=== PATIENT | female | born 1980 | race Caucasian/White ===

== ENCOUNTER → 2016-07-27 | Outpatient (CLI) | payer BC ==
[~2016-07-27] MED LIST: AMOXIL500 M1 PO; ATIVAN1 MG PO; BIAXIN500 MG PO; CLARITIN10 MG PO; DAYPRO600 M1 PO; DEPO PROVER150 MG/M1 IM; LIDEX0.05% T; MOTRIN800 MG PO; Meclizine25 MG PO; NKHM; PENICILLIN VK500 MG PO; PEPCID20 MG PO; ROBAXIN750 MG PO; TRAMADOL HCL50 MG PO; WYMOX500 MG PO; ZITHROMAX250 MG PO; ZYRTEC10 MG PO
[2016-07-27 13:05] LABS: BILIRUBIN NEGATIVE (NEGATIVE); BLOOD NEGATIVE (NEGATIVE); CLARITY CLEAR (CLEAR); COLOR YELLOW (YELLOW); GLUCOSE NEGATIVE (NEGATIVE); KETONE TRACE (NEGATIVE); LEUKO ESTERASE NEGATIVE (NEGATIVE); NITRITE NEGATIVE (NEGATIVE); PROTEIN NEGATIVE (NEGATIVE); SPECIFIC GRAVITY 1.025 (1.005-1.030); UROBILINOGEN 0.2 E.U./dl (0.2-1.0)
[2016-07-27 13:12] LABS: RBC 0-2 rbc/hpf (0-2)
[2016-07-27 13:13] LABS: BASO # 0.1 10*3/uL (0.0-0.1); BASO % 1.4 % (0.0-1.0); EOS % 0.7 % (1.0-4.0); HEMATOCRIT 38.6 % (37.0-47.0); LYMPH % 22.7 % (27.0-41.0); MEAN CORPUSCULAR HGB 30.3 pg (27.0-31.0); MEAN CORPUSCULAR HGB CONC 33.7 g/dl (33.0-37.0); MEAN PLATELET VOLUME 9.6 fl (9.6-12.3); MONO # 0.2 10*3/uL (0.1-1.0); MONO % 5.2 % (3.0-9.0); NEUT # 3.1 10*3/uL (2.3-7.9); NEUT % 69.8 % (47.0-73.0); PLATELET COUNT AUTOMATED 314 10*3/uL (130-400); RED BLOOD COUNT 4.29 10*6/uL (4.10-5.10); RED CELL DISTRI WIDTH 12.9 % (0-14.5); WHITE BLOOD COUNT 4.4 10*3/uL (4.8-10.8)
[2016-07-27 13:37] LABS: ALBUMIN 3.9 gm/dl (3.1-4.5); ALKALINE PHOSPHATASE 70 U/L (45-117); BILIRUBIN, TOTAL 0.6 mg/dl (0.2-1.0); BUN 18 mg/dl (7-24); CARBON DIOXIDE 29 mmol/L (21-32); CHLORIDE 105 mmol/L (98-107); EST GLOM FILT AFRICAN AMERICAN > 60 ml/min; GLUCOSE 102 mg/dL (65-99); POTASSIUM 3.8 mmol/L (3.5-5.1); SGOT/AST 17 IU/L (3-35); SGPT/ALT 25 U/L (12-78); SODIUM 141 mmol/L (136-145); TOTAL PROTEIN 7.5 gm/dL (6.4-8.2)
== END | disposition home or self-care (01) ==
LOC: LAB 12:02
PROVIDERS: Obstetrics & Gynecology
DX: Z01.818 Encounter for other preprocedural examination (principal); F17.200 Nicotine dependence, unspecified, uncomplicated

== ENCOUNTER 2016-11-28 13:28 | Emergency (ER) | payer BC ==
[~2016-11-28] VITALS: Ht 170.1 cm; Wt 68.0 kg
[2016-11-28 13:39] VITALS: BP 121/79
[2016-11-28 14:09] LABS: BASO # 0.1 10*3/uL (0.0-0.1); BASO % 0.8 % (0.0-1.0); EOS # 0.1 10*3/uL (0.0-0.4); EOS % 1.5 % (1.0-4.0); HEMATOCRIT 36.3 % (37.0-47.0); LYMPH # 1.2 10*3/uL (1.3-4.4); LYMPH % 18.6 % (27.0-41.0); MEAN CELL VOLUME 87.5 fl (81.0-99.0); MEAN CORPUSCULAR HGB 28.9 pg (27.0-31.0); MEAN CORPUSCULAR HGB CONC 33.1 g/dl (33.0-37.0); MEAN PLATELET VOLUME 9.4 fl (9.6-12.3); MONO # 0.3 10*3/uL (0.1-1.0); MONO % 5.2 % (3.0-9.0); NEUT # 4.6 10*3/uL (2.3-7.9); NEUT % 73.7 % (47.0-73.0); PLATELET COUNT AUTOMATED 347 10*3/uL (130-400); RED BLOOD COUNT 4.15 10*6/uL (4.10-5.10); RED CELL DISTRI WIDTH 14.2 % (0-14.5); WHITE BLOOD COUNT 6.2 10*3/uL (4.8-10.8)
[2016-11-28 14:11] LABS: BILIRUBIN NEGATIVE (NEGATIVE); BLOOD 2+ (NEGATIVE); CLARITY CLEAR (CLEAR); COLOR YELLOW (YELLOW); GLUCOSE NEGATIVE (NEGATIVE); KETONE NEGATIVE (NEGATIVE); LEUKO ESTERASE 1+ (NEGATIVE); NITRITE NEGATIVE (NEGATIVE); PROTEIN NEGATIVE (NEGATIVE); UROBILINOGEN 0.2 E.U./dl (0.2-1.0)
[2016-11-28 14:15] LABS: URINE REFLEX COMMENT YES (NO)
[2016-11-28 14:17] LABS: BACTERIA TRACE; EPITHELIAL CELLS 21-30; WBC 16-20 wbc/hpf (0-5)
[2016-11-28 14:28] LABS: ALBUMIN 3.8 gm/dl (3.1-4.5); ALKALINE PHOSPHATASE 99 U/L (45-117); BILIRUBIN, TOTAL 0.3 mg/dl (0.2-1.0); BUN 16 mg/dl (7-24); CARBON DIOXIDE 28 mmol/L (21-32); CHLORIDE 106 mmol/L (98-107); EST GLOM FILT AFRICAN AMERICAN > 60 ml/min; GLUCOSE 98 mg/dL (65-99); POTASSIUM 4.1 mmol/L (3.5-5.1); SGOT/AST 16 IU/L (3-35); SGPT/ALT 18 U/L (12-78); SODIUM 139 mmol/L (136-145); TOTAL PROTEIN 7.6 gm/dL (6.4-8.2)
[2016-11-28] MEDS ORDERED: NAPROSYN500 MG PO (17:35)
[2016-11-28] MEDS ORDERED: ZOFRAN4 MG PO (17:35)
[2016-11-28] MEDS ORDERED: MACROBID100 M1 PO (17:35)
[2016-11-28] MEDS ORDERED: PYRIDIUM200 M1 PO (17:35)
== END 2016-11-28 17:52 | disposition home or self-care (01) ==
LOC: ED 13:28
PROVIDERS: Nurse Practitioner Family
DX: N83.8 Other noninflammatory disorders of ovary, fallopian tube and broad ligament (principal); N39.0 Urinary tract infection, site not specified; F17.200 Nicotine dependence, unspecified, uncomplicated; Z88.1 Allergy status to other antibiotic agents; Z88.2 Allergy status to sulfonamides

== ENCOUNTER → 2017-10-27 | Outpatient (CLI) | payer BC ==
[~2017-10-27] MED LIST changes: +MACROBID100 M1 PO; +NAPROSYN500 MG PO; +PYRIDIUM200 M1 PO; +ZOFRAN4 MG PO
== END | disposition home or self-care (01) ==
LOC: RAD 07:48
DX: R10.13 Epigastric pain (principal)

== ENCOUNTER → 2017-11-09 | Outpatient (CLI) | payer BC ==
--- NOTE | ~2017-11-09 | PF ---
[place], [place] PULMONARY FUNCTION TEST NAME: ANA WHITFIELD UNIT #: [id number] ROOM: DOCTOR: JEFF BURGOS,SUSAN BIRTHDATE: [birth year] DOS: 11/09/2017 REQUESTED BY: MARCELL Mcgee INDICATIONS: A 67 inches tall, 155 pounds, 37-year-old female complaining of dyspepsia. No shortness of breath, no cough, no wheezing, but had some chest pain. A 87-ctsj-tpar history of smoking cigarettes and still does. Her father of lung cancer. The patient gave a good effort and reproducible. Flow volume loop normal. Spirometry, FEV1 post-bronchodilator therapy 3.7 liters or 98% predicted. FVC 4.4 liters, 107% predicted, which is 83% of the FEV1. No significant response to bronchodilator therapy. LUNG VOLUME: Slow vital capacity 168, inspiratory capacity 105, ERV 117. Total gas volume 107, residual volume 100. Total lung capacity 111% predicted, respectively. RV/TLC 20%, diffusion capacity 104% corrected. ____ volume 98%, alert volume 105% predicted, respectively. Airway resistance is 1%. IMPRESSION: This is essentially a normal pulmonary function test. No significant response to bronchodilator therapy. If asthma is suspected, suggest doing a methacholine challenge test ____ spirometry. Airway resistance suggests a little decrease than what is expected. SUSAN AGUILAR MD CM:PFREPORT:PULMONARY FUNCTION TEST [id number] SUSAN AGUILAR MD
== END | disposition home or self-care (01) ==
LOC: CP 08:20
DX: R10.13 Epigastric pain (principal)

== ENCOUNTER → 2018-01-04 | Day surgery (SDC) | payer BC ==
[~2018-01-04] VITALS: Ht 170.1 cm; Wt 64.9 kg
[~2018-01-04] MED LIST changes: +GOOD NEIGHBOR150 MG PO; +HYDROXYZINE HCL25 M1 PO; +OMEPRAZOLE40 MG PO
[2018-01-04 09:45] VITALS: BP 121/72
[2018-01-04 11:54] VITALS: BP 93/52
[2018-01-04 12:10] VITALS: BP 103/64
[2018-01-04 12:25] VITALS: BP 106/57
== END | disposition home or self-care (01) ==
LOC: SDC 01-03 14:00
DX: K29.60 Other gastritis without bleeding (principal); K21.9 Gastro-esophageal reflux disease without esophagitis; F41.8 Other specified anxiety disorders; Z90.710 Acquired absence of both cervix and uterus; Z87.891 Personal history of nicotine dependence; Z79.899 Other long term (current) drug therapy; Z88.1 Allergy status to other antibiotic agents; Z88.2 Allergy status to sulfonamides; Z80.0 Family history of malignant neoplasm of digestive organs; Z80.1 Family history of malignant neoplasm of trachea, bronchus and lung

== ENCOUNTER → 2018-01-26 | Outpatient (CLI) | payer BC | END | disposition home or self-care (01) | LOC: US 06:10 | DX: R10.13 Epigastric pain (principal) ==

== ENCOUNTER 2018-07-18 18:30 | Emergency (ER) | payer BC ==
[~2018-07-18] VITALS: Wt 65.8 kg
--- NOTE | ~2018-07-18 | EKG ---
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
--- NOTE | ~2018-07-18 | EKG ---
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
[2018-07-18 18:49] LABS: BASO # 0.1 10*3/uL (0.0-0.1); BASO % 0.9 % (0.0-1.0); EOS # 0.1 10*3/uL (0.0-0.4); EOS % 0.9 % (1.0-4.0); HEMATOCRIT 36.7 % (37.0-47.0); HEMOGLOBIN 12.8 g/dl (12.0-16.0); LYMPH # 1.9 10*3/uL (1.3-4.4); LYMPH % 29.8 % (27.0-41.0); MEAN CELL VOLUME 90.6 fl (81.0-99.0); MEAN CORPUSCULAR HGB 31.6 pg (27.0-31.0); MEAN CORPUSCULAR HGB CONC 34.9 g/dl (33.0-37.0); MEAN PLATELET VOLUME 9.2 fl (9.6-12.3); MONO # 0.5 10*3/uL (0.1-1.0); NEUT # 3.9 10*3/uL (2.3-7.9); NEUT % 60.2 % (47.0-73.0); PLATELET COUNT AUTOMATED 253 10*3/uL (130-400); RED BLOOD COUNT 4.05 10*6/uL (4.10-5.10); RED CELL DISTRI WIDTH 12.4 % (0-14.5); WHITE BLOOD COUNT 6.4 10*3/uL (4.8-10.8)
[2018-07-18 19:01] LABS: ACT PARTIAL THROMBO TIME 25.8 SECONDS (20.8-31.5); INTERNATIONAL NORM RATIO 0.9 (2.0-3.5)
[2018-07-18 19:06] LABS: ALBUMIN 3.5 gm/dl (3.1-4.5); ALKALINE PHOSPHATASE 73 U/L (45-117); BUN 22 mg/dl (7-24); CHLORIDE 105 mmol/L (98-107); CREATININE 0.97 mg/dL (0.55-1.02); POTASSIUM 3.4 mmol/L (3.5-5.1); SGOT/AST 17 IU/L (3-35); SGPT/ALT 47 U/L (12-78); SODIUM 140 mmol/L (136-145); TOTAL PROTEIN 7.2 gm/dL (6.4-8.2)
[2018-07-18 19:07] LABS: TROPONIN I < 0.015 ng/ml (<0.045)
[2018-07-18] MEDS ORDERED: CITALOPRAM HYDR10 MG PO (22:17)
[2018-07-18] MEDS ORDERED: ZYRTEC10 MG PO (22:17)
[2018-07-19 01:15] VITALS: BP 112/64
== END 2018-07-19 01:20 | disposition home or self-care (01) ==
LOC: ED 18:30
PROVIDERS: Emergency Medicine
DX: R07.89 Other chest pain (principal); R07.81 Pleurodynia; L29.9 Pruritus, unspecified; R07.0 Pain in throat; Z87.891 Personal history of nicotine dependence; Z88.2 Allergy status to sulfonamides; Z87.440 Personal history of urinary (tract) infections; Z90.710 Acquired absence of both cervix and uterus

== ENCOUNTER 2019-01-30 05:48 | Emergency (ER) | payer BC ==
[~2019-01-30] VITALS: Ht 170.1 cm; Wt 72.6 kg
[~2019-01-30 05:48] MED LIST changes: +CITALOPRAM HYDR10 MG PO
[2019-01-30 05:54] VITALS: BP 123/79
[2019-01-30 06:31] LABS: BILIRUBIN NEGATIVE (NEGATIVE); BLOOD NEGATIVE (NEGATIVE); CLARITY SL CLOUDY (CLEAR); COLOR YELLOW (YELLOW); GLUCOSE NEGATIVE (NEGATIVE); KETONE NEGATIVE (NEGATIVE); LEUKO ESTERASE NEGATIVE (NEGATIVE); NITRITE NEGATIVE (NEGATIVE); UROBILINOGEN 0.2 E.U./dl (0.2-1.0)
[2019-01-30 06:48] LABS: BACTERIA 4+; EPITHELIAL CELLS 15-20
== END 2019-01-30 07:04 | disposition home or self-care (01) ==
LOC: ED 05:48
PROVIDERS: Student in an Organized Health Care Education/Training Program
DX: N39.0 Urinary tract infection, site not specified (principal); Z88.2 Allergy status to sulfonamides; Z79.899 Other long term (current) drug therapy; Z90.710 Acquired absence of both cervix and uterus

== ENCOUNTER → 2019-06-10 | Outpatient (CLI) | payer BC ==
[2019-06-10 09:10] LABS: ALBUMIN 3.7 gm/dl (3.1-4.5); ALKALINE PHOSPHATASE 103 U/L (45-117); BUN 14 mg/dl (7-24); CHLORIDE 110 mmol/L (98-107); CREATININE 0.77 mg/dL (0.55-1.02); FREE T4 0.91 ng/dl (0.76-1.46); POTASSIUM 3.9 mmol/L (3.5-5.1); SGOT/AST 18 IU/L (3-35); SGPT/ALT 34 U/L (12-78); SODIUM 140 mmol/L (136-145); T3 UPTAKE 37 % (31-39); TOTAL PROTEIN 7.5 gm/dL (6.4-8.2)
[2019-06-10 09:18] LABS: THYROID STIM HORMONE (HS) 0.528 uIU/ml (0.358-4.75)
[2019-06-10 10:29] LABS: VITAMIN D, 25-HYDROXY 15.2 ng/mL (30-100)
[2019-06-11 08:08] LABS: FOLLICLE STIMULATING HORMONE 5.2 mIU/mL (.); LUTEINIZING HORMONE 004283 5.2 mIU/mL (.); PROLACTIN 004465 5.1 ng/mL (4.8-23.3)
[2019-06-11 09:10] LABS: THYROID PEROXIDASE (TPO) AB 15 IU/mL (0-34); TOTAL T3 (TT3) 002188 98 ng/dL (71-180)
[2019-06-12 14:08] LABS: INSULIN-LIKE GROWTH FACTOR-1 197 ng/mL (69-227)
[2019-06-12 15:10] LABS: HUMAN GROWTH HORMONE 0.3 ng/mL (0.0-10.0)
[2019-06-12 16:06] LABS: THYROGLOBULIN ANTIBODY <1.0 IU/mL (0.0-0.9)
[2019-06-15 00:09] LABS: METANEPHRINE, PLASMA 11 pg/mL (0-62)
[2019-06-15 11:56] LABS: NORMETANEPHRINE, PLASMA 31 pg/mL (0-145)
== END | disposition home or self-care (01) ==
LOC: LAB 07:52
PROVIDERS: Internal Medicine Endocrinology, Diabetes & Metabolism
DX: I10 Essential (primary) hypertension (principal); M54.5 Low back pain; E03.9 Hypothyroidism, unspecified; G62.9 Polyneuropathy, unspecified; R63.5 Abnormal weight gain; R53.82 Chronic fatigue, unspecified

== ENCOUNTER 2019-09-21 09:36 | Emergency (ER) | payer BC ==
[~2019-09-21] VITALS: Ht 170.1 cm; Wt 86.2 kg
[2019-09-21 09:42] VITALS: BP 122/68
[2019-09-21 10:14] LABS: BASO % 0.5 % (0.0-1.0); EOS # 0.2 10*3/uL (0.0-0.4); EOS % 2.8 % (1.0-4.0); HEMATOCRIT 35.9 % (37.0-47.0); HEMOGLOBIN 11.7 g/dl (12.0-16.0); LYMPH # 1.1 10*3/uL (1.3-4.4); LYMPH % 16.4 % (27.0-41.0); MEAN CELL VOLUME 94.5 fl (81.0-99.0); MEAN CORPUSCULAR HGB 30.8 pg (27.0-31.0); MEAN CORPUSCULAR HGB CONC 32.6 g/dl (33.0-37.0); MEAN PLATELET VOLUME 8.9 fl (9.6-12.3); MONO # 0.4 10*3/uL (0.1-1.0); MONO % 6.1 % (3.0-9.0); NEUT # 4.8 10*3/uL (2.3-7.9); PLATELET COUNT AUTOMATED 284 10*3/uL (130-400); RED CELL DISTRI WIDTH 13.2 % (0-14.5); WHITE BLOOD COUNT 6.4 10*3/uL (4.8-10.8)
[2019-09-21 10:30] LABS: ALBUMIN 3.1 gm/dl (3.1-4.5); ALKALINE PHOSPHATASE 90 U/L (45-117); BUN 14 mg/dl (7-24); CHLORIDE 108 mmol/L (98-107); CREATININE 0.78 mg/dL (0.55-1.02); POTASSIUM 3.7 mmol/L (3.5-5.1); SGOT/AST 21 IU/L (3-35); SODIUM 138 mmol/L (136-145); TOTAL PROTEIN 6.5 gm/dL (6.4-8.2)
[2019-09-21 10:31] LABS: SGPT/ALT 20 U/L (12-78)
[2019-09-21] MEDS ORDERED: AMOXICILLIN500 M3 PO (11:03)
== END 2019-09-21 11:22 | disposition home or self-care (01) ==
LOC: ED 09:36
PROVIDERS: Nurse Practitioner Family
DX: J02.9 Acute pharyngitis, unspecified (principal); R22.1 Localized swelling, mass and lump, neck; Z88.2 Allergy status to sulfonamides; Z79.899 Other long term (current) drug therapy

== ENCOUNTER → 2019-12-28 | Outpatient (CLI) | payer BC ==
[~2019-12-28] MED LIST changes: +AMOXICILLIN500 M3 PO
== END | disposition home or self-care (01) ==
LOC: CARD 11:46
DX: R06.02 Shortness of breath (principal)

== ENCOUNTER 2022-12-29 20:30 | Emergency (ER) | payer BC ==
[~2022-12-29] VITALS: Ht 167.6 cm; Wt 77.1 kg
[2022-12-29 20:39] VITALS: BP 146/87
[2022-12-29] MEDS ORDERED: NAPROSYN500 MG PO (21:12)
== END 2022-12-29 21:11 | disposition home or self-care (01) ==
LOC: ED 20:30
DX: S93.402A Sprain of unspecified ligament of left ankle, initial encounter (principal); F41.9 Anxiety disorder, unspecified; K21.9 Gastro-esophageal reflux disease without esophagitis; F32.A Depression, unspecified; Z88.2 Allergy status to sulfonamides; Z88.8 Allergy status to other drugs, medicaments and biological substances; Z90.710 Acquired absence of both cervix and uterus; Z98.890 Other specified postprocedural states; X50.1XXA Overexertion from prolonged static or awkward postures, initial encounter; Y93.68 Activity, volleyball (beach) (court); Y92.39 Other specified sports and athletic area as the place of occurrence of the external cause; Y99.8 Other external cause status

== ENCOUNTER 2024-09-24 16:01 | Emergency (ER) | payer BC ==
[~2024-09-24] VITALS: Ht 170.1 cm; Wt 74.8 kg
[2024-09-24 16:09] VITALS: BP 145/91
[2024-09-24] MEDS ORDERED: AMOX-CLAV 875-1 EACH PO (16:27)
== END 2024-09-24 16:39 | disposition home or self-care (01) ==
LOC: ED 16:01
DX: K04.7 Periapical abscess without sinus (principal); Z88.2 Allergy status to sulfonamides; Z79.899 Other long term (current) drug therapy; Z90.711 Acquired absence of uterus with remaining cervical stump